=== PATIENT | female | born 1945 | race Caucasian/White ===

== ENCOUNTER → 2016-07-31 | Outpatient (CLI) | payer OTHER ==
[~2016-07-31] MED LIST: ALUMCHW2 PO; ARTISOL8 OP; ASPEC325 PO; ATOR-22 PO; BND25X PO; CALCTAB5 PO; CHOL1CAP57 PO; CLOP1TAB15 PO; CLR10 PO; DVN80 PO; FOLI800T PO; IMD/2 PO; LEVO125T4 PO; MULT-506 PO; RANI300T2 PO; TRAZ50TA35 PO; [UNRECOGNIZED DRUG - OTHER] PO
--- NOTE | 2016-07-31 10:57 | DIAGNOSTIC IMAGING REPORT ---
Right LOWER EXTREMITY VENOUS DOPPLER HISTORY: RIGHT LOWER LEG PAIN AND SWELLING Right COMPARISON STUDY: None. FINDINGS: There is normal compressibility, flow, and augmentation within the right lower extremity deep venous system. There is a 6.0 x 3.6 x 1.0 cm popliteal cyst. IMPRESSION: No DVT within the right lower extremity. Right popliteal cyst. Electronically signed by: Hunter Betancur M.D. 07/31/2016 10:55 AM Dictated Date/Time: 07/31/2016 10:54 AM
== END | disposition home or self-care (01) ==
LOC: C.ULTRBC 10:19
PROVIDERS: ATTEND Family Medicine
DX: M79.604 Pain in right leg (principal); M71.21 Synovial cyst of popliteal space [Baker], right knee

== ENCOUNTER → 2016-08-27 | Outpatient (CLI) | payer OTHER ==
[2016-08-27 09:54] LABS: ALT/SGPT 28 U/L (12-78); BLOOD UREA NITROGEN 18 mg/dl (7-18); BUN/CREATININE RATIO 30.9 (10-20); CALCIUM 8.9 mg/dl (8.5-10.1); CARBON DIOXIDE 26 mmol/L (21-32); CHLORIDE 103 mmol/L (98-107); CHOLESTEROL 128 mg/dl (0-200); CREATININE 0.57 mg/dl (0.60-1.20); GLUCOSE 81 mg/dl (70-99); POTASSIUM 3.9 mmol/L (3.5-5.1); SODIUM 138 mmol/L (136-145); TRIGLYCERIDES 119 mg/dl (0-150); VERY LOW DENSITY LIPOPROT CALC 24 mg/dl
[2016-08-27 10:01] LABS: ALB/GLOB RATIO 0.9 (0.9-2); ALKALINE PHOSPHATASE 70 U/L (45-117); AST/SGOT 21 U/L (15-37); CHOLESTEROL/HDL RATIO 2.6; HDL CHOLESTEROL 49 mg/dl; LDL CHOLESTEROL CALCULATED 55 mg/dl; THYROID STIMULATING HORMONE 0.954 uIu/ml (0.300-4.500)
== END | disposition home or self-care (01) ==
LOC: C.LAB 07:19
PROVIDERS: ATTEND Family Medicine
DX: E78.00 Pure hypercholesterolemia, unspecified (principal); E89.0 Postprocedural hypothyroidism; Z11.59 Encounter for screening for other viral diseases

== ENCOUNTER → 2016-10-29 | Outpatient (CLI) | payer OTHER ==
[~2016-10-29] MED LIST changes: -LEVO125T4 PO; +LEVO125T5 PO
--- NOTE | 2016-10-29 13:19 | MAMMOGRAPHY REPORT ---
BILATERAL DIGITAL SCREENING MAMMOGRAM TOMOSYNTHESIS WITH CAD: 10/29/2016 CLINICAL HISTORY: Asymptomatic. Personal history of breast cancer. TECHNIQUE: Breast tomosynthesis in addition to standard 2D mammography was performed. Current study was also evaluated with a Computer Aided Detection (CAD) system. COMPARISON: Comparison is made to exams dated: 10/28/2015 mammogram, 09/24/2014 mammogram, 09/20/2013 m ammogram, 09/19/2012 mammogram, 09/17/2011 ultrasound, and 09/17/2011 mammogram - [facility]. BREAST COMPOSITION: There are scattered areas of fibroglandular density in both breasts. FINDINGS: No suspicious masses, calcifications, or areas of architectural distortion are noted in e ither breast. There has been no significant interval change compared to prior exams. There are stab le postsurgical changes in the right breast from prior lumpectomy. Bilateral benign-appearing calci fications are not significantly changed. A port catheter overlies the left pectoralis muscle. IMPRESSION: ACR BI-RADS CATEGORY 2: BENIGN There is no mammographic evidence of malignancy. A 1 year screening mammogram is recommended. The p atient will receive written notification of the results. Approximately 10% of breast cancers are not detected with mammography. A negative mammographic repor t should not delay biopsy if a clinically suggestive mass is present. Hallie Lynn M.D. ah/:10/29/2016 12:37:53 Space Buyer: Cesario [facility]SI[facility](Neri)(M), [facility] letter sent: Normal 1/2 BI-RADS Code: ACR BI-RADS Category 2: Benign
== END | disposition home or self-care (01) ==
LOC: C.MAMM 09:41
PROVIDERS: ATTEND Obstetrics & Gynecology
DX: Z12.31 Encounter for screening mammogram for malignant neoplasm of breast (principal); Z85.3 Personal history of malignant neoplasm of breast; Z08 Encounter for follow-up examination after completed treatment for malignant neoplasm

== ENCOUNTER → 2017-01-05 | Outpatient (CLI) | payer OTHER ==
[~2017-01-05] MED LIST changes: +LEVO125T4 PO; -LEVO125T5 PO
[2017-01-05 09:45] LABS: BASO % 0.4 %; BASO ABS # 0.04 K/uL (0-0.2); COMPLETE YES; EOS % 2.4 %; IG% 0.3 %; LYMPH % 25.8 %; LYMPH ABS # 2.34 K/uL (1.2-3.4); MEAN CELL VOLUME 98.4 fL (80-100); MEAN CORPUSCULAR HEMOGLOBIN 32.3 pg (25-34); MEAN CORPUSCULAR HGB CONC 32.9 g/dl (32-36); MEAN PLATELET VOLUME 10.7 fL (7.4-10.4); MONO % 11.4 %; NEUT % 59.7 %; PLATELET COUNT 270 K/uL (130-400); RED BLOOD COUNT 4.27 M/uL (4.2-5.4); WHITE BLOOD COUNT 9.07 K/uL (4.8-10.8)
--- NOTE | 2017-01-19 09:36 | CODING QUERY MEDICAL NECESSITY ---
CQSUPPORTING DIAGNOSIS NEEDED A supporting diagnosis is required for the test/procedure performed on this patient in order for us to be reimbursed by the patient's insurance. Please provide a supporting diagnosis for the following test/procedure listed below next to the test name along with your signature. *If there is no additional diagnosis for this patient that would support the following test/procedure please document that below next to the test/procedure. Test(s)/Procedure(s) that require a supporting diagnosis: DOS 01/05/17 VITAMIN D VITAMIN B12 SERUM IRON STUDY Provider Signature: Date: Thank you Sonia [facility] Information Management Once completed, please kindly fax back to [phone] For questions please call [phone]
== END | disposition home or self-care (01) ==
LOC: C.LAB 07:53
PROVIDERS: ATTEND Family Medicine
DX: F41.9 Anxiety disorder, unspecified (principal); R53.83 Other fatigue; E16.2 Hypoglycemia, unspecified

== ENCOUNTER → 2017-03-31 | Outpatient (CLI) | payer OTHER ==
[2017-03-31 09:51] LABS: ALT/SGPT 34 U/L (12-78); BLOOD UREA NITROGEN 11 mg/dl (7-18); BUN/CREATININE RATIO 16.6 (10-20); CALCIUM 9.1 mg/dl (8.5-10.1); CARBON DIOXIDE 26 mmol/L (21-32); CHLORIDE 104 mmol/L (98-107); CHOLESTEROL 119 mg/dl (0-200); CREATININE 0.68 mg/dl (0.60-1.20); GLUCOSE 82 mg/dl (70-99); POTASSIUM 3.8 mmol/L (3.5-5.1); SODIUM 138 mmol/L (136-145)
[2017-03-31 10:02] LABS: ALKALINE PHOSPHATASE 73 U/L (45-117); AST/SGOT 25 U/L (15-37); CHOLESTEROL/HDL RATIO 2.3; HDL CHOLESTEROL 51 mg/dl; LDL CHOLESTEROL CALCULATED 39 mg/dl; TRIGLYCERIDES 147 mg/dl (0-150); VERY LOW DENSITY LIPOPROT CALC 29 mg/dl
== END | disposition home or self-care (01) ==
LOC: C.LABBC 08:02
PROVIDERS: ATTEND Family Medicine
DX: E78.00 Pure hypercholesterolemia, unspecified (principal); I10 Essential (primary) hypertension; E16.2 Hypoglycemia, unspecified; E66.9 Obesity, unspecified

== ENCOUNTER → 2017-04-23 | Outpatient (CLI) | payer OTHER ==
[~2017-04-23] MED LIST changes: -LEVO125T4 PO; +LEVO125T5 PO; +OPTIRAY 320 IV PRN
--- NOTE | 2017-04-23 10:17 | DIAGNOSTIC IMAGING REPORT ---
CT SCAN OF THE BRAIN COMBO CLINICAL HISTORY: Syncope. Vertigo. COMPARISON STUDY: CT the brain dated 11/26/2015. TECHNIQUE: Axial CT scan of the brain is performed from the vertex to the skull base before and following the IV administration of 93 cc of Optiray 320. CT DOSE: 1074.96 mGy.cm FINDINGS: Brain parenchyma: There are age-related involutional changes noting minimal subcortical and periventricular microangiopathic change. There is no hemorrhage, mass effect, or evidence of acute territorial ischemia by CT criteria. There is minimal left cerebellar encephalomalacia consistent with a remote insult. No enhancing lesion is identified on the postcontrast series. Tyler-white matter is preserved. No extra-axial fluid collection is seen. Ventricles, sulci, cisterns: Prominent secondary to involutional change. Intracranial vasculature: There is atherosclerotic calcification of the cavernous carotid arteries. Calvarium: There are postoperative changes from left occipital craniectomy. No destructive calvarial lesion is seen. Sinuses and mastoids: The visualized paranasal sinuses are clear. The mastoid air cells are well pneumatized. Orbits: The bony orbits are grossly intact. IMPRESSION: There is no hemorrhage, enhancing mass, or evidence of acute territorial ischemia by CT criteria. Electronically signed by: Augusto Mcclelland M.D. 04/23/2017 10:16 AM Dictated Date/Time: 04/23/2017 10:11 AM
== END | disposition home or self-care (01) ==
LOC: C.CTS 09:48
PROVIDERS: ATTEND Neuromusculoskeletal Medicine & OMM
DX: R55 Syncope and collapse (principal); R42 Dizziness and giddiness

== ENCOUNTER 2017-06-05 02:28 | Emergency (ER) | payer OTHER ==
[~2017-06-05] VITALS: Ht 154.9 cm; Wt 92.4 kg
[~2017-06-05 02:28] MED LIST changes: -OPTIRAY 320 IV PRN
[2017-06-05 02:34] VITALS: TEMP 36.7; Ht 154.9 cm; Wt 92.4 kg
[2017-06-05] MEDS ORDERED: GELATIN SPONGE 12-7MM ONE (02:49)
[2017-06-05] MEDS ORDERED: GELATIN SPONGE 12-7MM EXT ONE (03:00)
--- NOTE | 2017-06-05 03:13 | EMERGENCY ROOM VISIT NOTE ---
ED Visit Note First contact with patient: 02:48 CHIEF COMPLAINT: Chest wound bleeding HISTORY OF PRESENT ILLNESS: This 72-year-old patient presents to the emergency department complaining of bleeding from wound to chest from biopsy from the other day . The bleeding has not stopped. Denies weakness or numbness. Patient denies any fevers or signs of infection. The patient rates the pain as mild and 1/10. The patient denies any other injuries. The patient's tetanus shot is up to date. REVIEW OF SYSTEMS: A 6 system review of systems was completed with positives and pertinent negatives listed in the HPI. ALLERGIES: Cipro, reviewed MEDICATIONS: Plavix, reviewed PMH:Medical Problems: (1) Breast cancer Status: Resolved (2) HTN (hypertension) Status: Chronic (3) Thyroid cancer Status: Resolved Surgical Problems: (1) H/O bilateral oophorectomy Status: Resolved (2) H/O partial mastectomy Status: Resolved (3) History of cholecystectomy Status: Resolved (4) History of thymectomy Status: Resolved SOCIAL HISTORY: No drug use PHYSICAL EXAM: Vital Signs: Reviewed Nurse's notes, vital signs stable. GENERAL : Pleasant female, in no acute distress, well developed, well nourished. SKIN: There is a 1 cm x 2 cm open wound to the left anterior chest wall with minimal bleeding that appears clean without signs of infection. There is no foreign material in the wound and it looks clean. There is bleeding. No deep structures such as tendons, bones, or significant blood vessels are seen in the base of the wound. Normal sensation to light and sharp touch. EMERGENCY DEPARTMENT COURSE: I examined the patient. There is cleansed and dried and Gelfoam was placed. Bandage is then placed. Hemostasis was achieved. Patient was observed for over 15 minutes with no rebleeding. She is counseled on removal of Gelfoam. She is advised follow-up family care in a few days or here in the ER sooner for fevers, chest pain, difficulty breathing, signs of infection, worsening signs or symptoms or as needed. The patient was discharged home in good condition. DIAGNOSIS: Open wound to chest DISCHARGE INSTRUCTIONS & TREATMENT: Keep dressing in place for 48 hrs, then remove. Soak foam in water until it falls off easily, then clean wound daily, cover with an antibiotic ointment and keep covered until it heals. Return for any signs of infection (increasing redness, swelling, drainage, fever). Ice and elevate for swelling and pain. Ibuprofen 600 mg and Tylenol 1000 mg every 6 hrs for pain (Maximum 3000 mg Tylenol in 24 hr period). Keep covered when in sun until fully healed then SPF 50 or higher for one year. Vitamin E oil if desired two weeks after fully healed for reduction of scar. Problem List Medical Problems: (1) Breast cancer Status: Resolved (2) HTN (hypertension) Status: Chronic (3) Thyroid cancer Status: Resolved Surgical Problems: (1) H/O bilateral oophorectomy Status: Resolved (2) H/O partial mastectomy Status: Resolved (3) History of cholecystectomy Status: Resolved (4) History of thymectomy Status: Resolved Current/Historical Medications Scheduled Artificial Tears (Artificial Tears), 1-2 DROPS OP QID Aspirin (Aspirin *), 325 MG PO QAM Atorvastatin (Lipitor), 20 MG PO HS Calcium (Caltrate), 600 MG PO BID Cholecalciferol (Vitamin D3), 1,000 UNITS PO DAILY AFTERNOON Clopidogrel (Plavix), 75 MG PO HS Folic Acid (Folic Acid), 800 MG PO QAM Levothyroxine Sodium (Levothyroxine Sodium), 1 TAB PO QAM Loperamide Hcl (Imodium), 2 MG PO PRN Loratadine (Claritin), 10 MG PO HS Multivitamin (Multivitamin), 1 TAB PO QAM Ranitidine (Zantac), 300 MG PO BID Trazodone Hcl (Trazodone), 50 MG PO HS Valsartan (Diovan), 80 MG PO QAM Scheduled PRN Aluminum Hydroxide-Mag Trisil (Gaviscon), 1 CHW PO UD PRN for Indigestion Diphenhydramine Hcl (Benadryl *), 25 MG PO Q4-6H PRN for as directed Lactase (Lactase Enzyme), Unknown Dose PO DIRECTED PRN for dairy intake Allergies Coded Allergies: Ciprofloxacin (Verified Allergy, Intermediate, RASH, 01/31/16) Quinolones (Verified Allergy, Mild, RASH, ITCHING, 01/31/16) Lisinopril (Verified Allergy, Unknown, HIVES, 01/31/16) Diazepam (Verified Adverse Reaction, Mild, HALLUCINATIONS, 01/31/16) Vital Signs Date Time Temp Pulse Resp B/P (MAP) Pulse Ox O2 Delivery O2 Flow Rate FiO2 12/9/17 02:34 36.7 73 20 137/71 95 Room Air Medications Administered Medications (Trade) Dose Ordered Sig/John Route Start Time Stop Time Status Last Admin Dose Admin Gelatin (Surgifoam Sponge 12-7MM (SMALL)) 1 ea NOW ONCE EXT 06/05/17 03:00 06/05/17 03:01 DC 06/05/17 02:54 1 EA Departure Information Impression Primary Impression: Open wound of chest wall without complication Dispostion Home / Self-Care Condition GOOD Forms HOME CARE DOCUMENTATION FORM, IMPORTANT VISIT INFORMATION Patient Instructions [facility]
[2017-06-05] MEDS ORDERED: ASPI325T39 PO (03:19)
[2017-06-05] MEDS ORDERED: DIPH25CA5 PO (03:23)
[2017-06-05 03:25] VITALS: BP 130/58; PULSE 69; O2SAT 94
[2017-06-05] MEDS ORDERED: LEVO137T3 PO (03:25)
[2017-06-05] MEDS ORDERED: ZNTT/150 PO (03:27)
[2017-06-05] MEDS ORDERED: DVN80 PO (03:29)
[2017-06-05] MEDS ORDERED: CETI10TA84 PO (03:32)
[2017-06-05] MEDS ORDERED: TRAZ-119 PO (03:33)
--- NOTE | 2017-06-05 05:53 | EMERGENCY ROOM VISIT NOTE ---
ED Visit Note First contact with patient: 02:48 I have personally evaluated and examined this patient. I agree with assessment and plan of Ira Ibarra PA-C. S/candy derm biopsy with bleeding left upper chest.
== END 2017-06-05 03:27 | disposition home or self-care (01) ==
LOC: C.EDB 02:30 → C.EDA 03:27
DX: S21.102A Unspecified open wound of left front wall of thorax without penetration into thoracic cavity, initial encounter (principal); X58.XXXA Exposure to other specified factors, initial encounter; I10 Essential (primary) hypertension; Z85.3 Personal history of malignant neoplasm of breast; Z85.850 Personal history of malignant neoplasm of thyroid; Z90.10 Acquired absence of unspecified breast and nipple; Z90.49 Acquired absence of other specified parts of digestive tract; Z90.89 Acquired absence of other organs; Z79.82 Long term (current) use of aspirin; Z79.02 Long term (current) use of antithrombotics/antiplatelets

== ENCOUNTER → 2017-10-01 | Outpatient (CLI) | payer OTHER, BC ==
[~2017-10-01] MED LIST changes: +ARTIOIN OPB; -ARTISOL8 OP; +ASCO250T4 PO; -ASPEC325 PO; +ASPI325T39 PO; -BND25X PO; -CALCTAB5 PO; +CHOL100010 PO; -CHOL1CAP57 PO; +DIPH25CA65 PO; -DVN80 PO; +DVN80125 PO; +GLYCDRO6 OPB; -IMD/2 PO; -LEVO125T5 PO; +LEVO137T3 PO; +OYST500T47 PO; +RANI150T85 PO; -RANI300T2 PO; -[UNRECOGNIZED DRUG - OTHER] PO
[2017-10-01 11:49] LABS: ALBUMIN 3.6 gm/dl (3.4-5.0); AST/SGOT 25 U/L (15-37); BLOOD UREA NITROGEN 15 mg/dl (7-18); CARBON DIOXIDE 26 mmol/L (21-32); CHOLESTEROL 149 mg/dl (0-200); CREATININE 0.75 mg/dl (0.60-1.20); GLUCOSE 89 mg/dl (70-99); POTASSIUM 3.9 mmol/L (3.5-5.1); SODIUM 137 mmol/L (136-145)
[2017-10-01 12:01] LABS: ALKALINE PHOSPHATASE 77 U/L (45-117); ALT/SGPT 33 U/L (12-78); LDL CHOLESTEROL CALCULATED 68 mg/dl; TOTAL PROTEIN 7.6 gm/dl (6.4-8.2)
[2017-10-01 12:13] LABS: BASO % 0.7 %; BASO ABS # 0.05 K/uL (0-0.2); EOS % 2.3 %; EOS ABS # 0.18 K/uL (0-0.5); HEMATOCRIT 41.2 % (37-47); HEMOGLOBIN 14.2 g/dL (12.0-16.0); IG# 0.02 K/uL (0.00-0.02); LYMPH % 29.6 %; LYMPH ABS # 2.27 K/uL (1.2-3.4); MEAN CELL VOLUME 96.9 fL (80-100); MEAN CORPUSCULAR HEMOGLOBIN 33.4 pg (25-34); MEAN CORPUSCULAR HGB CONC 34.5 g/dl (32-36); MEAN PLATELET VOLUME 10.9 fL (7.4-10.4); MONO % 9.9 %; MONO ABS # 0.76 K/uL (0.11-0.59); NEUT % 57.2 %; PLATELET COUNT 248 K/uL (130-400); RED CELL DISTRIBUTION WIDTH CV 13.8 % (11.5-14.5); RED CELL DISTRIBUTION WIDTH SD 48.5 fL (36.4-46.3); WHITE BLOOD COUNT 7.68 K/uL (4.8-10.8)
== END | disposition home or self-care (01) ==
LOC: C.LABBC 07:53
PROVIDERS: ATTEND Neuromusculoskeletal Medicine & OMM
DX: E78.00 Pure hypercholesterolemia, unspecified (principal); I10 Essential (primary) hypertension; E80.6 Other disorders of bilirubin metabolism; E16.2 Hypoglycemia, unspecified; E66.9 Obesity, unspecified

== ENCOUNTER → 2017-10-05 | Day surgery (SDC) | payer OTHER, BC ==
[2017-09-15 07:33] VITALS: Ht 156.2 cm; Wt 93.2 kg
[~2017-10-05] VITALS: Ht 156.2 cm; Wt 93.2 kg
[~2017-10-05] MED LIST changes: +500ML BSS 0.3ML EPI 1:1000PF IRRIG ONE; +ACETAMINOPHEN 325 MG TAB PO PRN; +AMVISC PLUS 0.8ML SYRINGE INT OCU ONE; +ATROPINE SULFATE 0.1 MG/ML 5ML SYR IV PRN; +BSS FLUSH ONE; +EpHEDrine SULFATE INJ 50 MG/ML AMP IV PRN; +EpINEphrine INJ 1MG/ML AMP 1 MG/ML AMP ONE; +LACTATED RINGER'S 1000ML 500 ML IV SCH; +LIDOCAINE 3.5% OPH GEL PER APPLICATION CHARGE ONE; +LIDOCAINE HCL 1% MPF 2 ML VIAL ONE; +MIDAZOLAM HCL 1 MG/ML 2ML VIAL ONE; +POVIDONE-IODINE OP SOLN 30 ML BTL ONE; +PROPARACAINE 0.5% OP SOLN PER DROP CHARGE OPR SCH; +TOBRAMYCIN/DEXAMETHASONE OPH OINT PER APPLN CHARGE ONE
[2017-10-05] MEDS: GATIFLOXACIN OP SOLN PER DROP CHARGE OPR SCH ×3 (06:05→07:08)
[2017-10-05] MEDS: PHENYLEPHRINE HCL 2.5% OP SOLN PER DROP CHARGE OPR SCH ×2 (06:51→06:58)
[2017-10-05] MEDS: TROPICAMIDE 1% OP SOLN PER DROP CHARGE OPR SCH ×2 (06:52→06:59)
[2017-10-05] MEDS: CYCLOPENTOLATE HCL 1% OP SOLN PER DROP CHARGE OPR SCH ×2 (06:53→07:00)
[2017-10-05] MEDS: KETOROLAC 0.5% OP SOLN PER DROP CHARGE OPR SCH ×2 (06:55→07:02)
--- NOTE | 2017-10-05 07:26 | History & Physical Bridge - SC ---
H&P Re-Evaluation Bridge Note: I have examined the patient, reviewed the History & Physical and in the interval since the performance of the History & Physical I have noted the following changes of clinical significance: No changes noted
--- NOTE | 2017-10-05 08:06 | Discharge Instructions-SurgCtr ---
Discharge Instructions Date of Service Oct 05, 2017. Visit Reason for Visit: Cataract Right Eye Discharge Discharge Diagnosis / Problem: cataract Discharge Goals Goal(s): Improve function Activity Recommendations Activity Limitations: per Instructions/Follow-up section Anesthesia . Post Anesthesia Instructions: If you have had General Anesthesia or IV Sedation: * Do not drive today. * Resume driving when surgeon permits. * Do not make important decisions or sign legal documents today. * Call surgeon for: 1. Temperature elevations greater than 101 degrees F. 2. Uncontrollable pain. 3. Excessive bleeding. 4. Persistent nausea and vomiting. 5. Medication intolerance (nausea, vomiting or rash). * For nausea and vomiting use only clear liquids such as: tea, soda, bouillon until nausea subsides, then gradually increase diet as tolerated. * If you have any concerns or questions, call your surgeon's office. If physician is unavailable and it is an emergency, call 911 or go to the nearest emergency room. . Diet Recommendations Home Diet: resume previous diet Procedures Procedures Performed: Right Cataract Phacoemulsification With Intraocular Lens Implant Pending Studies Studies pending at discharge: no Medical Emergencies . Who to Call and When: Medical Emergencies: If at any time you feel your situation is an emergency, please call 911 immediately. . Non-Emergent Contact Non-Emergency issues call your: Investigative Agent . . "Provider Documentation" section prepared by Kyle Condon. .
--- NOTE | 2017-10-05 08:06 | [facility] Operative Report ---
Operative Report Date of Service Oct 05, 2017. Operative Report 1. PREOPERATIVE DIAGNOSIS: Cataract of the right eye. 2. POSTOPERATIVE DIAGNOSIS: Same. 3. PROCEDURE: Phacoemulsification with intraocular lens implantation of the right eye. SURGEON: Dr. Kyle Condon. ANESTHESIA: Topical Lidocaine gel, 1% Non- Preserved intracameral Lidocaine, and monitored intravenous sedation. INDICATIONS FOR THE PROCEDURE: The patient is a 72 - year-old female with a history of cataract of the right eye causing significant visual impairment. The details of the proposed procedure were explained to the patient who asked appropriate questions and following discussion of all risks, benefits and alternatives agreed to have the procedure done. 4. OPERATION AND FINDINGS: DESCRIPTION OF PROCEDURE: After informed consent was obtained, the patient was brought to the Operating Room at the [facility]. The patient was placed in a supine position and then the right eye was prepped and draped in the usual sterile fashion for intraocular surgery. A drop of topical Lidocaine gel was placed in the operative eye. A wire lid speculum was then placed in the fornices. A corneal paracentesis was then created temporally. The Non-Preserved Lidocaine was then instilled into the anterior chamber. The anterior chamber was then pressurized with viscoelastic. A 2.0 mm clear corneal incision was then created temporally. A cystotome was inserted into the anterior chamber and used to create a tear in the anterior lens capsule. This capsular tear was then used to create a small flap and the flap was dragged in a counterclockwise direction in order to create a continuous curvilinear capsulorrhexis. Hydrodissection was accomplished with balanced salt solution. Phacoemulsification of the lens nucleus was then performed in a standard [id number] technique. The phaco time was 24 seconds with an average power of 10 %. The remaining cortical material was removed using irrigation aspiration. The capsular bag was then filled with viscoelastic. A Bausch [employer] Lomb MI60L +14.0 diopters lens was then loaded into the injector and injected into the capsular bag. The remaining viscoelastic was removed with the irrigation aspiration handpiece. The wound was hydrated and then checked and found to be watertight. The intraocular pressure was checked and found to be adequate. The wire lid speculum was removed and the patient's face was cleaned and dried. TobraDex ointment was placed in the inferior fornix. The patient was discharged to the Recovery Room having tolerated the procedure well. There were no complications. The patient will be seen tomorrow in the office for follow-up. I attest to the content of the Intraoperative Record and any orders documented therein. Any exceptions are noted below.
[2017-10-05 08:09] VITALS: TEMP 36.2
[2017-10-05 08:41] VITALS: BP 135/78; PULSE 68; O2SAT 98
--- NOTE | 2017-10-05 08:42 | Anesthesia Progress Nt - [facility] ---
Anesthesia Post Op Note Date & Time Oct 05, 2017 at 08:42 Vital Signs Pain Intensity: 0 Vital Signs Past 12 Hours Date Time Temp Pulse Resp B/P (MAP) Pulse Ox O2 Delivery O2 Flow Rate FiO2 10/05/17 08:41 68 16 135/78 (97) 98 10/05/17 08:09 36.2 65 16 143/84 (103) 96 Room Air 10/05/17 06:43 36.3 67 18 117/81 (93) 99 Room Air Notes Mental Status: alert / awake / arousable, participated in evaluation Pt Amnestic to Procedure: Yes Nausea / Vomiting: adequately controlled Pain: adequately controlled Airway Patency, RR, SpO2: stable & adequate BP & HR: stable & adequate Hydration State: stable & adequate Anesthetic Complications: no major complications apparent
== END | disposition home or self-care (01) ==
LOC: X.SURG 06:36
PROVIDERS: ATTEND Ophthalmology
DX: H26.9 Unspecified cataract (principal); K21.9 Gastro-esophageal reflux disease without esophagitis; E78.00 Pure hypercholesterolemia, unspecified; E89.0 Postprocedural hypothyroidism; I10 Essential (primary) hypertension; E66.9 Obesity, unspecified; M85.80 Other specified disorders of bone density and structure, unspecified site; Z85.3 Personal history of malignant neoplasm of breast; Z85.850 Personal history of malignant neoplasm of thyroid; Z90.89 Acquired absence of other organs; Z91.041 Radiographic dye allergy status; Z88.1 Allergy status to other antibiotic agents; Z88.8 Allergy status to other drugs, medicaments and biological substances; Z87.891 Personal history of nicotine dependence; Z86.19 Personal history of other infectious and parasitic diseases; Z80.0 Family history of malignant neoplasm of digestive organs; Z82.49 Family history of ischemic heart disease and other diseases of the circulatory system; Z80.41 Family history of malignant neoplasm of ovary; I69.992 Facial weakness following unspecified cerebrovascular disease

== ENCOUNTER → 2017-10-26 | Day surgery (SDC) | payer OTHER, BC ==
[2017-10-14 14:43] VITALS: Ht 156.2 cm; Wt 93.2 kg
[~2017-10-26] VITALS: Ht 156.2 cm; Wt 93.2 kg
[~2017-10-26] MED LIST changes: +OCUCOAT 1 ML SOLN IO ONE; +ONDANSETRON INJ 2 MG/ML 2 ML VIAL IV PRN; +PROPARACAINE 0.5% OP SOLN PER DROP CHARGE OPL SCH; -PROPARACAINE 0.5% OP SOLN PER DROP CHARGE OPR SCH
[2017-10-26] MEDS: PHENYLEPHRINE HCL 2.5% OP SOLN PER DROP CHARGE OPL SCH ×2 (07:18→07:24)
[2017-10-26] MEDS: TROPICAMIDE 1% OP SOLN PER DROP CHARGE OPL SCH ×2 (07:19→07:24)
[2017-10-26] MEDS: CYCLOPENTOLATE HCL 1% OP SOLN PER DROP CHARGE OPL SCH ×2 (07:20→07:25)
[2017-10-26] MEDS: KETOROLAC 0.5% OP SOLN PER DROP CHARGE OPL SCH ×2 (07:22→07:26)
[2017-10-26] MEDS: GATIFLOXACIN OP SOLN PER DROP CHARGE OPL SCH ×2 (07:22→07:32)
--- NOTE | 2017-10-26 08:12 | [facility] Operative Report ---
Operative Report Date of Service October 26, 2017. Operative Report 1. PREOPERATIVE DIAGNOSIS: Cataract of the left eye. 2. POSTOPERATIVE DIAGNOSIS: Same. 3. PROCEDURE: Phacoemulsification with intraocular lens implantation of the left eye. SURGEON: Dr. Kyle Condon. ANESTHESIA: Topical Lidocaine gel, 1% Non- Preserved intracameral Lidocaine, and monitored intravenous sedation. INDICATIONS FOR THE PROCEDURE: The patient is a 72 - year-old female with a history of cataract of the left eye causing significant visual impairment. The details of the proposed procedure were explained to the patient who asked appropriate questions and following discussion of all risks, benefits and alternatives agreed to have the procedure done. 4. OPERATION AND FINDINGS: DESCRIPTION OF PROCEDURE: After informed consent was obtained, the patient was brought to the Operating Room at the [facility]. The patient was placed in a supine position and then the left eye was prepped and draped in the usual sterile fashion for intraocular surgery. A drop of topical Lidocaine gel was placed in the operative eye. A wire lid speculum was then placed in the fornices. A corneal paracentesis was then created temporally. The Non-Preserved Lidocaine was then instilled into the anterior chamber. The anterior chamber was then pressurized with viscoelastic. A 2.0 mm clear corneal incision was then created temporally. A cystotome was inserted into the anterior chamber and used to create a tear in the anterior lens capsule. This capsular tear was then used to create a small flap and the flap was dragged in a counterclockwise direction in order to create a continuous curvilinear capsulorrhexis. Hydrodissection was accomplished with balanced salt solution. Phacoemulsification of the lens nucleus was then performed in a standard [id number] technique. The phaco time was 23 seconds with an average power of 11 %. The remaining cortical material was removed using irrigation aspiration. The capsular bag was then filled with viscoelastic. A Bausch & Lomb MI60L +14.0 diopters lens was then loaded into the injector and injected into the capsular bag. The remaining viscoelastic was removed with the irrigation aspiration handpiece. The wound was hydrated and then checked and found to be watertight. The intraocular pressure was checked and found to be adequate. The wire lid speculum was removed and the patient's face was cleaned and dried. TobraDex ointment was placed in the inferior fornix. The patient was discharged to the Recovery Room having tolerated the procedure well. There were no complications. The patient will be seen tomorrow in the office for follow-up. I attest to the content of the Intraoperative Record and any orders documented therein. Any exceptions are noted below.
--- NOTE | 2017-10-26 08:13 | Discharge Instructions-SurgCtr ---
Discharge Instructions Date of Service October 26, 2017. Visit Reason for Visit: Cataract Left Eye Discharge Discharge Diagnosis / Problem: cataract Discharge Goals Goal(s): Improve function Activity Recommendations Activity Limitations: per Instructions/Follow-up section Anesthesia . Post Anesthesia Instructions: If you have had General Anesthesia or IV Sedation: * Do not drive today. * Resume driving when surgeon permits. * Do not make important decisions or sign legal documents today. * Call surgeon for: 1. Temperature elevations greater than 101 degrees F. 2. Uncontrollable pain. 3. Excessive bleeding. 4. Persistent nausea and vomiting. 5. Medication intolerance (nausea, vomiting or rash). * For nausea and vomiting use only clear liquids such as: tea, soda, bouillon until nausea subsides, then gradually increase diet as tolerated. * If you have any concerns or questions, call your surgeon's office. If physician is unavailable and it is an emergency, call 911 or go to the nearest emergency room. . Diet Recommendations Home Diet: resume previous diet Procedures Procedures Performed: Left Cataract Phacoemulsification With Intraocular Lens Implant Pending Studies Studies pending at discharge: no Medical Emergencies . Who to Call and When: Medical Emergencies: If at any time you feel your situation is an emergency, please call 911 immediately. . Non-Emergent Contact Non-Emergency issues call your: Automobile Painter . . "Provider Documentation" section prepared by Kyle Condon. .
[2017-10-26 08:16] VITALS: TEMP 37
--- NOTE | 2017-10-26 08:33 | Anesthesia Progress Nt - [facility] ---
Anesthesia Post Op Note Date & Time October 26, 2017 at 08:33 Vital Signs Pain Intensity: 0 Vital Signs Past 12 Hours Date Time Temp Pulse Resp B/P (MAP) Pulse Ox O2 Delivery O2 Flow Rate FiO2 10/26/17 08:16 37 68 16 158/86 (110) 99 Room Air 10/26/17 07:05 36.5 71 16 129/83 (98) 94 Room Air Notes Mental Status: alert / awake / arousable, participated in evaluation Pt Amnestic to Procedure: Yes Nausea / Vomiting: adequately controlled Pain: adequately controlled Airway Patency, RR, SpO2: stable & adequate BP & HR: stable & adequate Hydration State: stable & adequate Anesthetic Complications: no major complications apparent
[2017-10-26 08:37] VITALS: BP 129/84; PULSE 72; O2SAT 100
== END | disposition home or self-care (01) ==
LOC: X.SURG 06:42
PROVIDERS: ATTEND Ophthalmology
DX: H26.9 Unspecified cataract (principal); K21.9 Gastro-esophageal reflux disease without esophagitis; F41.9 Anxiety disorder, unspecified; I65.29 Occlusion and stenosis of unspecified carotid artery; F32.9 Major depressive disorder, single episode, unspecified; E78.00 Pure hypercholesterolemia, unspecified; I10 Essential (primary) hypertension; E66.9 Obesity, unspecified; M85.80 Other specified disorders of bone density and structure, unspecified site; Z85.3 Personal history of malignant neoplasm of breast; Z88.0 Allergy status to penicillin; Z88.8 Allergy status to other drugs, medicaments and biological substances; Z88.1 Allergy status to other antibiotic agents; Z79.82 Long term (current) use of aspirin; Z86.73 Personal history of transient ischemic attack (TIA), and cerebral infarction without residual deficits; Z80.0 Family history of malignant neoplasm of digestive organs; Z82.49 Family history of ischemic heart disease and other diseases of the circulatory system; Z80.3 Family history of malignant neoplasm of breast

== ENCOUNTER → 2017-11-02 | Outpatient (CLI) | payer OTHER, BC ==
[~2017-11-02] MED LIST changes: -500ML BSS 0.3ML EPI 1:1000PF IRRIG ONE; -ACETAMINOPHEN 325 MG TAB PO PRN; -AMVISC PLUS 0.8ML SYRINGE INT OCU ONE; -ATROPINE SULFATE 0.1 MG/ML 5ML SYR IV PRN; -BSS FLUSH ONE; -EpHEDrine SULFATE INJ 50 MG/ML AMP IV PRN; -EpINEphrine INJ 1MG/ML AMP 1 MG/ML AMP ONE; -LACTATED RINGER'S 1000ML 500 ML IV SCH; -LIDOCAINE 3.5% OPH GEL PER APPLICATION CHARGE ONE; -LIDOCAINE HCL 1% MPF 2 ML VIAL ONE; -MIDAZOLAM HCL 1 MG/ML 2ML VIAL ONE; -OCUCOAT 1 ML SOLN IO ONE; -ONDANSETRON INJ 2 MG/ML 2 ML VIAL IV PRN; -POVIDONE-IODINE OP SOLN 30 ML BTL ONE; -PROPARACAINE 0.5% OP SOLN PER DROP CHARGE OPL SCH; -TOBRAMYCIN/DEXAMETHASONE OPH OINT PER APPLN CHARGE ONE
--- NOTE | 2017-11-03 15:05 | MAMMOGRAPHY REPORT ---
BILATERAL DIGITAL SCREENING MAMMOGRAM TOMOSYNTHESIS WITH CAD: 11/02/2017 CLINICAL HISTORY: Asymptomatic. Personal history of breast cancer. TECHNIQUE: Breast tomosynthesis in addition to standard 2D mammography was performed. Current study was also evaluated with a Computer Aided Detection (CAD) system. COMPARISON: Comparison is made to exams dated: 10/29/2016 mammogram, 10/28/2015 mammogram, 09/24/2014 har[facility]o mogram, 09/20/2013 mammogram, 09/19/2012 mammogram, and 09/17/2011 mammogram - [facility]. BREAST COMPOSITION: There are scattered areas of fibroglandular density in both breasts. FINDINGS: The hub of a Mediport catheter projects over the superior left pectoralis muscle on the MLO view. There is expected architectural distortion, dystrophic calcification, surgical clips and sutu ral calcification in the retroareolar middle and posterior right breast, at the site of prior lumpect tom. No new suspicious mass, architectural distortion or cluster of microcalcifications is seen. IMPRESSION: ACR BI-RADS CATEGORY 1: NEGATIVE There is no mammographic evidence of malignancy. A 1 year screening mammogram is recommended. The pa tient will receive written notification of the results. Approximately 10% of breast cancers are not detected with mammography. A negative mammographic report should not delay biopsy if a clinically suggestive mass is present. Page Coello M.D. ay/:11/02/2017 18:17:21 Choral Teacher: Haley HSIEH(Neri)(Say), [facility] letter sent: Normal 1/2 BI-RADS Code: ACR BI-RADS Category 1: Negative
== END | disposition home or self-care (01) ==
LOC: C.MAMM 08:05
PROVIDERS: ATTEND Obstetrics & Gynecology
DX: Z12.31 Encounter for screening mammogram for malignant neoplasm of breast (principal); Z85.3 Personal history of malignant neoplasm of breast